=== PATIENT | female | born 1960 | race Hispanic/Latino ===

== ENCOUNTER 2016-12-02 09:02 | Outpatient (CLI) | payer OTHER ==
--- NOTE | 2016-12-02 12:11 | Mammography Report ---
BILATERAL DIGITAL SCREENING MAMMOGRAM with CAD: 12/02/16 09:02:00 CLINICAL: Routine screening. COMPARISON:11/27/15 and 11/21/14 FINDINGS: The breasts are heterogeneously dense, which may obscure small masses. A right retroareolar focal asymmetry requires additional imaging.No architectural distortion or suspicious calcifications.The left breast is negative. IMPRESSION: Right asymmetry requiring further workup. BI-RADS CATEGORY: 0 -- Additional Imaging Evaluation Required RECOMMENDATION: Recall for right lateralmedial , spot compression CC and MLO views and right breast ultrasound if needed. ACR BI-RADS MAMMOGRAPHIC CODES: 0 = Needs additional imaging evaluation; 1 = Negative; 2 = Benign; 3 = Probably benign; 4 = Suspicious; 5 = Malignant; 6 = Known biopsy-proven malignancy COMMENT: 1. Dense breast tissue, i.e., adenosis, fibrocystic changes, etc., may obscure an underlying neoplasm. 2. Approximately 10% of cancers are not detected with mammography. 3. A negative mammography report should not delay biopsy if a clinically suspicious mass is present. COMMENT: Patient follow-up letters are generated via our [employer] application.
== END 2016-12-02 09:03 | disposition home or self-care (01) ==
LOC: SPVWC 09:02
PROVIDERS: ATTEND Obstetrics & Gynecology
DX: Z12.31 Encounter for screening mammogram for malignant neoplasm of breast (principal)
CPT/HCPCS: 77067; G0202

== ENCOUNTER 2016-12-21 13:02 | Outpatient (CLI) | payer OTHER ==
--- NOTE | 2016-12-21 13:29 | Mammography Report ---
RIGHT DIGITAL DIAGNOSTIC MAMMOGRAM : 12/21/16 13:02:00 CLINICAL: Recall for asymmetries. COMPARISON:12/02/16 screening FINDINGS: Lateralmedial and spot compression MLO and CC views were performed. Satisfactory effacement of asymmetries on the spot views and negative lateral view. IMPRESSION: Negative Mammogram. BI-RADS CATEGORY: 1 -- Negative RECOMMENDATION: Routine mammographic screening in one year. ACR BI-RADS MAMMOGRAPHIC CODES: 0 = Needs additional imaging evaluation; 1 = Negative; 2 = Benign; 3 = Probably benign; 4 = Suspicious; 5 = Malignant; 6 = Known biopsy-proven malignancy COMMENT: 1. Dense breast tissue, i.e., adenosis, fibrocystic changes, etc., may obscure an underlying neoplasm. 2. Approximately 10% of cancers are not detected with mammography. 3. A negative mammography report should not delay biopsy if a clinically suspicious mass is present. COMMENT: Patient follow-up letters are generated via our [employer] application.
== END 2016-12-21 13:03 | disposition home or self-care (01) ==
LOC: SPVWC 13:02
PROVIDERS: ATTEND Obstetrics & Gynecology
DX: R92.8 Other abnormal and inconclusive findings on diagnostic imaging of breast (principal)
CPT/HCPCS: G0206-RT

== ENCOUNTER 2017-12-06 08:33 | Outpatient (CLI) | payer OTHER ==
--- NOTE | 2017-12-06 14:36 | Mammography Report ---
BILATERAL DIGITAL SCREENING MAMMOGRAM with CAD: 12/06/17 08:33:00 CLINICAL: Routine screening.History of a right benign biopsy. COMPARISON:12/02/16 FINDINGS: The breasts are heterogeneously dense, which may obscure small masses. No mass, architectural distortion or suspicious calcifications. IMPRESSION: No mammographic evidence of malignancy. BI-RADS CATEGORY: 1 - - Negative RECOMMENDATION: Routine mammographic screening in one year. COMMENT: Patient follow-up letters are generated by our [employer] application.
== END 2017-12-06 08:34 | disposition home or self-care (01) ==
LOC: SPVWC 08:33
PROVIDERS: ATTEND Obstetrics & Gynecology
DX: Z12.31 Encounter for screening mammogram for malignant neoplasm of breast (principal); E78.00 Pure hypercholesterolemia, unspecified; I10 Essential (primary) hypertension; K21.9 Gastro-esophageal reflux disease without esophagitis; Z87.891 Personal history of nicotine dependence; Z90.721 Acquired absence of ovaries, unilateral
CPT/HCPCS: 77067

== ENCOUNTER 2018-12-14 08:52 | Outpatient (CLI) | payer OTHER ==
--- NOTE | 2018-12-17 09:07 | Mammography Report ---
DIGITAL SCREENING MAMMOGRAM WITH CAD, 12/14/2018 INDICATION: Routine screening mammography. TECHNIQUE: Digital bilateral 2D mammography was obtained in the craniocaudal and mediolateral obliq ue projections. This examination was interpreted with the benefit of Computer-Aided Detection analysi s. COMPARISON: 12/06/2017 and 12/21/2016 FINDINGS: Breast Density: The breasts are heterogeneously dense, which may obscure small masses. There is no evidence of dominant mass, suspicious calcifications or architectural distortion in the r ight breast. However, left outer calcifications require additional imaging. No mass or architectural distortion of the left breast. IMPRESSION: Left calcifications requiring additional imaging. Recommend recall for left ML and CC mag nification views. Follow up recommendation: Special View: Mag Category 0: Incomplete. Needs additional imaging evaluation and/or prior mammograms for comparison. A "normal" or negative report should not discourage follow up or biopsy of a clinically significant f inding. A written summary of these findings will be mailed to the patient. The patient will be entered into a mammography reporting system which will generate a reminder letter for the patient's next appointmen t at the appropriate interval. The [employer] recommends yearly mammograms starting at age 40 and continuing as l nancy as a woman is in good health. Breast MRI is recommended for women with an approximate 20-25% or greater lifetime risk of breast cancer, including women with a strong family history of breast or ova ginny cancer or who have been treated for Hodgkin's disease. Signer Name: Chiki Calderon MD Signed: 12/17/2018 9:03 AM Workstation Name: [id number]
== END 2018-12-14 08:53 | disposition home or self-care (01) ==
LOC: SPVWC 08:52
PROVIDERS: ATTEND Obstetrics & Gynecology
DX: Z12.31 Encounter for screening mammogram for malignant neoplasm of breast (principal)
CPT/HCPCS: 77067

== ENCOUNTER 2019-01-16 08:12 | Outpatient (CLI) | payer OTHER ==
--- NOTE | 2019-01-16 09:22 | Mammography Report ---
DIGITAL LEFT DIAGNOSTIC MAMMOGRAM WITH CAD, WITHOUT TOMOSYNTHESIS 01/16/2019 INDICATION: ABNORMAL MAMMOGRAM. Recall for calcifications. TECHNIQUE: Digital left mammographic imaging was performed. Magnification views were obtained. This examination was interpreted with the benefit of Computer-aided Detection analysis. COMPARISON: 12/14/2018 Breast Density: The breasts are heterogeneously dense, which may obscure small masses. FINDINGS: Lateral medial and lateral and CC magnification views demonstrate several groups of suspici ous outer calcifications. Fine linear and pleomorphic calcifications with 2 groups added just below t he nipple level and 2 groups above the nipple level on the lateral view. No associated mass or jas ectural distortion. IMPRESSION: Suspicious left outer breast calcifications. Recommend stereotactic biopsy of at least 2 groups. I discussed the findings and the recommendation for a 2 site stereotactic biopsy with the patient at the time of the exam. Follow up recommendation: Stereotactic biopsy left breast. BI-RADS Category 4: Suspicious for Malignancy. A "normal" or negative report should not discourage follow up or biopsy of a clinically significant f inding. A written summary of these findings will be mailed to the patient. The patient will be entered into a mammography reporting system which will generate a reminder letter for the patient's next appointmen t at the appropriate interval. According to the [employer], yearly mammograms are recommended starting at age 40 and continuing as long as a woman is in good health. Breast MRI is recommended for women with an felicita roximately 20-25% or greater lifetime risk of breast cancer, including women with a strong family his tory of breast or ovarian cancer and women who have been treated for Hodgkin's disease. Signer Name: Chiki Calderon MD Signed: 01/16/2019 9:17 AM Workstation Name: [id number]
== END 2019-01-16 08:13 | disposition home or self-care (01) ==
LOC: SPVWC 08:12
PROVIDERS: ATTEND Obstetrics & Gynecology
DX: R92.8 Other abnormal and inconclusive findings on diagnostic imaging of breast (principal); R92.2 Inconclusive mammogram; Z90.721 Acquired absence of ovaries, unilateral; Z87.891 Personal history of nicotine dependence; Z98.890 Other specified postprocedural states

== ENCOUNTER 2019-01-31 12:39 | Outpatient (CLI) | payer OTHER ==
--- NOTE | 2019-01-31 15:51 | Mammography Report ---
STEREOTACTIC NEEDLE BIOPSY WITH CLIP PLACEMENT AT 2 SITES RIGHT BREAST INDICATION: Suspicious calcifications. COMPARISON: 01/16/2019 mammogram. FINDINGS: The patient was placed prone on the stereotactic biopsy table. A timeout was called and the skin was cleansed with betadine. Using stereotactic guidance, sterile technique and 1% lidocaine for skin anesthesia and 2% lidocaine with epinephrine for deep anesthesia, 8-gauge Mammotome vacuum-assisted biopsy was performed from a l ateral approach. Samples were obtained around the clock face and assistance representative calcifications were i dentified on a specimen radiograph. A localizer clip was placed at the biopsy site and the probe was removed. Using stereotactic guidance, sterile technique and 1% lidocaine for skin anesthesia and 2% lidocaine with epinephrine for deep anesthesia, 8-gauge Mammotome vacuum-assisted biopsy was performed from a l ateral approach at a second site. Samples were obtained around the clock face and assistance representative calc ifications were identified on a specimen radiograph. A localizer clip was placed at the biopsy site a nd the probe was removed. Hemostasis was achieved with pressure to both sites. Sterile dressings and an Azam bandage wrap were a pplied. A post procedure mammogram demonstrated removal of at least some of the calcifications both sites and concordant location of the biopsy clips. The patient tolerated the procedure well and there were no apparent complications. She left the department in good condition with a cold pack applied to the bio psy sites. She was given instructions for wound care and follow-up. IMPRESSION: Successful and uncomplicated stereotactic breast biopsy at 2 sites right breast. Signer Name: Chiki Calderon MD Signed: 01/31/2019 3:46 PM Workstation Name: [id number]
--- NOTE | 2019-01-31 16:14 | Mammography Report ---
STEREOTACTIC NEEDLE BIOPSY WITH CLIP PLACEMENT AT 2 SITES RIGHT BREAST INDICATION: Suspicious calcifications. COMPARISON: 01/16/2019 mammogram. FINDINGS: The patient was placed prone on the stereotactic biopsy table. A timeout was called and th e skin was cleansed with betadine. Using stereotactic guidance, sterile technique and 1% lidocaine for skin anesthesia and 2% lidocaine with epinephrine for deep anesthesia, 8-gauge Mammotome vacuum-assisted biopsy was performed from a l ateral approach. Samples were obtained around the clock face and sales representative girls' apparel calcifications were i dentified on a specimen radiograph. A localizer clip was placed at the biopsy site and the probe was removed. Using stereotactic guidance, sterile technique and 1% lidocaine for skin anesthesia and 2% lidocaine with epinephrine for deep anesthesia, 8-gauge Mammotome vacuum-assisted biopsy was performed from a l ateral approach at a second site. Samples were obtained around the clock face and sales representative girls' apparel calc ifications were identified on a specimen radiograph. A localizer clip was placed at the biopsy site a nd the probe was removed. Hemostasis was achieved with pressure to both sites. Sterile dressings and an Azam bandage wrap were a pplied. A post procedure mammogram demonstrated removal of at least some of the calcifications both sites and concordant location of the biopsy clips. The patient tolerated the procedure well and there were no apparent complications. She left the department in good condition with a cold pack applied to the bio psy sites. She was given instructions for wound care and follow-up. IMPRESSION: Successful and uncomplicated stereotactic breast biopsy at 2 sites right breast. Signer Name: Chiki Calderon MD Signed: 01/31/2019 4:10 PM Workstation Name: [id number]
--- NOTE | 2019-02-12 09:04 | Mammography Report ---
Pathology: A. 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 Breast tissue, left calcifications #2, core biopsies: * Ductal carcinoma in situ with associated microcalcifications * Growth pattern: solid, cribriform and comedonecrosis * Nuclear features: high grade * Necrosis: present * Carcinoma in situ measures 12 mm in greatest dimension. Immunohistochemical stains p63 (positive) and [facility] (positive) performed on blocks B1-B2 and confirm t he above diagnosis * Immunohistochemical stains for estrogen and progesterone receptors performed on block B1 and the result as follows: ER 0%, negative NM 0%, negative IMPRESSION: Concordant imaging and pathology. Signed: Chiki Calderon MD Signed:02/05/2019 9 STEREOTACTIC NEEDLE BIOPSY WITH CLIP PLACEMENT AT 2 SITES RIGHT BREAST INDICATION: Suspicious calcifications. COMPARISON: 01/16/2019 mammogram. FINDINGS: The patient was placed prone on the stereotactic biopsy table. A timeout was called and the skin was cleansed with betadine. Using stereotactic guidance, sterile technique and 1% lidocaine for skin anesthesia and 2% lidocaine with epinephrine for deep anesthesia, 8-gauge Mammotome vacuum-assisted biopsy was performed from a l ateral approach. Samples were obtained around the clock face and applications sales representative calcifications were i dentified on a specimen radiograph. A localizer clip was placed at the biopsy site and the probe was removed. Using stereotactic guidance, sterile technique and 1% lidocaine for skin anesthesia and 2% lidocaine with epinephrine for deep anesthesia, 8-gauge Mammotome vacuum-assisted biopsy was performed from a l ateral approach at a second site. Samples were obtained around the clock face and applications sales representative calc ifications were identified on a specimen radiograph. A localizer clip was placed at the biopsy site a nd the probe was removed. Hemostasis was achieved with pressure to both sites. Sterile dressings and an Azam bandage wrap were a pplied. A post procedure mammogram demonstrated removal of at least some of the calcifications at both sites and concordant location of the biopsy clips. The patient tolerated the procedure well and there were no apparent complications. She left the department in good condition with a cold pack applied to the biopsy sites. She was given instructions for wound care and follow-up. IMPRESSION: Successful and uncomplicated stereotactic breast biopsy at 2 sites right breast. Signer Name: Chiki Calderon MD Signed: 02/12/2019 8:59 AM Workstation Name: [id number]
== END 2019-01-31 12:40 | disposition home or self-care (01) ==
LOC: SPVWC 12:39
PROVIDERS: ATTEND Obstetrics & Gynecology
DX: R92.2 Inconclusive mammogram (principal); R92.8 Other abnormal and inconclusive findings on diagnostic imaging of breast; E78.00 Pure hypercholesterolemia, unspecified; I10 Essential (primary) hypertension; K21.9 Gastro-esophageal reflux disease without esophagitis; Z87.891 Personal history of nicotine dependence; Z79.899 Other long term (current) drug therapy; Z79.82 Long term (current) use of aspirin; Z85.43 Personal history of malignant neoplasm of ovary; Z86.711 Personal history of pulmonary embolism; Z90.721 Acquired absence of ovaries, unilateral; Z72.89 Other problems related to lifestyle; Z83.3 Family history of diabetes mellitus
CPT/HCPCS: 19081; 19082; 77065; 88305; A4648; 88341; 88342

== ENCOUNTER 2019-02-27 09:24 | Outpatient (CLI) | payer OTHER ==
--- NOTE | 2019-02-27 15:15 | Magnetic Resonance Report ---
BILATERAL BREAST MR WITHOUT AND WITH GADOLINIUM INDICATION: Newly diagnosed left breast cancer at 2 sites. She had a 2 site left stereotactic breast biopsy on 01/31/2019. 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 COMPARISONS: 01/31/2019 post procedure mammogram and 12/14/2018 bilateral screening mammogram. She also had a left breast ultrasound on the same day as this MRI. TECHNIQUE: Axial 1.0 mm T1 without, axial high-resolution 2.0 mm T2 and axial 1.0 mm dynamic vibrant high-resolution postcontrast T1 fat saturation sequences on a 1.5 Beverly magnet. The examination was p erformed with an 8-channel dedicated [place] breast coil. Post-processing with CAD and subtraction was performed on an [employer]@ workstation. 12.0 cc of MultiHance was injected without incident for the c ontrast portion of the exam. Consent was obtained prior to the administration of the contrast. FINDINGS: RIGHT BREAST: Minimal background parenchymal enhancement. No mass or suspicious enhancement. No suspi cious lymph nodes. LEFT BREAST: Minimal background parenchymal enhancement. Highly suspicious segmental clumped nonmass enhancement of the outer breast measures 10.0 cm anterior-posterior x 4.5 cm transverse x 4.5 cm supe rior-inferior. It spans from within 1 cm from the nipple to within 1 cm from the pectoralis major mus rigo. The stereotactic biopsy sites are at the posterior and inferior margins of this nonmass enhancem ent. No distinct mass. A suspicious 1 cm level 1 axillary lymph node has minimal central fat. No othe r suspicious lymph nodes. IMPRESSION: 1. Multicentric left breast cancer with tumor spanning 10 cm in the outer quadrant from within 1 cm o f the nipple to within 1 cm of the pectoralis major muscle. No chest wall invasion. 2. 1 suspicious left axillary lymph node. 3. Negative right breast and no suspicious right lymph nodes. BI-RADS Category 6: Known cancer Signer Name: Chiki Calderon MD Signed: 02/27/2019 3:11 PM Workstation Name: [id number]
--- NOTE | 2019-02-27 16:19 | Ultrasound Report ---
COMPLETE LEFT BREAST ULTRASOUND HISTORY: Newly diagnosed left breast cancer (high-grade DCIS) at 2 sites by stereotactic biopsy. COMPARISON: 12/14/2018 and 01/16/2019 mammograms FINDINGS: Ultrasound of all 4 quadrants and the retroareolar area were performed. A heterogeneous alessio id mass at 1:30 o'clock 6 cm from the nipple is consistent with a post biopsy hematoma and clip. It m easures 12 x 7 x 12 mm. A post biopsy hematoma/seroma extending to the skin at 3:00 5 cm from the nip ple correlates with the second stereotactic biopsy site. No other mass versus finding. Ultrasound of the left axilla demonstrated a single 1.2 cm lymph node with central fat and no suspicious lymph node s. IMPRESSION: Postbiopsy changes at 2 sites and no other suspicious findings in the left breast. BIRADS 6: Known biopsy proven malignancy. Signer Name: Chiki Calderon MD Signed: 02/27/2019 4:15 PM Workstation Name: [id number]
== END 2019-02-27 09:25 | disposition home or self-care (01) ==
LOC: SPVWC 09:24
PROVIDERS: ATTEND Surgery
DX: D05.12 Intraductal carcinoma in situ of left breast (principal)
CPT/HCPCS: 76641; A9577; C8908; 77049

== ENCOUNTER 2019-03-07 14:49 | Outpatient (CLI) | payer OTHER ==
--- NOTE | 2019-03-07 16:28 | Ultrasound Report ---
ULTRASOUND-GUIDED NEEDLE CORE BIOPSY LEFT AXILLARY LYMPH NODE WITH CLIP PLACEMENT CLINICAL: Left breast cancer and a suspicious left axillary lymph node by MRI. FINDINGS: The procedure was explained to the patient and informed consent was obtained. Ultrasound demonstrated a 1 cm lymph node which appears to correlate with the MRI finding.. I marked the breast with a felt tip marker and a timeout was called. The skin was prepped with Chloro -Prep and anesthetized with 1% lidocaine. Needle core biopsy was performed through small dermatotomy using ultrasound guidance, 2% lidocaine wi th epinephrine for deep anesthesia and a 18-gauge Achieve biopsy device. 2 cores were obtained and pl aced in formalin. A clip was deployed within the lymph node. The patient tolerated the procedure well and there were no apparent complications. Hemostasis was ach ieved with minimal effort and a sterile dressing was applied. IMPRESSION: Uncomplicated ultrasound guided needle core biopsy with clip placement left axilla. Signer Name: Chiki Calderon MD Signed: 03/07/2019 4:24 PM Workstation Name: [id number]
== END 2019-03-07 14:50 | disposition home or self-care (01) ==
LOC: SPVWC 14:49
PROVIDERS: ATTEND Surgery
DX: I89.8 Other specified noninfective disorders of lymphatic vessels and lymph nodes (principal); C50.912 Malignant neoplasm of unspecified site of left female breast; E78.00 Pure hypercholesterolemia, unspecified; I10 Essential (primary) hypertension; K21.9 Gastro-esophageal reflux disease without esophagitis; Z79.84 Long term (current) use of oral hypoglycemic drugs; Z79.899 Other long term (current) drug therapy; Z87.891 Personal history of nicotine dependence; Z85.43 Personal history of malignant neoplasm of ovary; Z86.711 Personal history of pulmonary embolism; Z90.721 Acquired absence of ovaries, unilateral; Z72.89 Other problems related to lifestyle; Z83.3 Family history of diabetes mellitus
CPT/HCPCS: 38505; 76942; 88305; A4648; 88342

== ENCOUNTER 2019-03-11 06:04 | Observation (INO) | payer OTHER ==
[~2019-03-11 06:04] MED LIST: ceFAZolin/Water 2 GM/20 ML 2 GM/20 ML SYRINGE IV NR
[2019-03-11] MEDS ORDERED: LACTATED RINGERS 1,000 ML ONE ×2 (07:02→09:47)
[2019-03-11] MEDS ORDERED: BACTERIOSTATIC SODIUM CHLORIDE 0.9% 30 ML VIAL INFILTRATI ONE (07:03)
--- NOTE | 2019-03-11 07:17 | Anesthesia Consultation ---
Anesthesia Consult and Med Hx Date of service: 03/11/19 - Airway Anesthetic Teeth Evaluation: Good ROM Head & Neck: Adequate Mental/Hyoid Distance: Adequate Mallampati Class: Class II Intubation Access Assessment: Good - Pulmonary Exam CTA: Yes - Cardiac Exam Cardiac Exam: RRR - Pre-Operative Health Status ASA Pre-Surgery Classification: ASA3 Proposed Anesthetic Plan: General Nerve Block: PEC Block - Pulmonary Hx Smoking: Yes (SINCE AGE 20; QUIT 2002) Hx Asthma: No SOB: No COPD: No Hx Pneumonia: No Hx Sleep Apnea: No - Cardiovascular System Hx Hypertension: Yes (15+ YEARS) - Central Nervous System Hx Seizures: No Hx Psychiatric Problems: Yes - Gastrointestinal Hx Gastroesophageal Reflux Disease: Yes (CONTROLLED WITH MEDS) - Endocrine Hx Renal Disease: No Hx End Stage Renal Disease: No Hx Hypothyroidism: Yes - Hematic Hx Anemia: No - Other Systems Hx Alcohol Use: Yes (OCCASIONAL) Hx Substance Use: No Hx Cancer: Yes Hx Obesity: No
--- NOTE | 2019-03-11 07:18 | Anesthesia Day of Surgery ---
Anesthesia Day of Surgery - Day of Surgery Patient Examined: Yes Patient H&P Reviewed: Yes Patient is NPO: Yes
[2019-03-11] MEDS ORDERED: PROPOFOL 200 MG/20 ML VIAL IV ONE (07:30)
[2019-03-11] MEDS ORDERED: LIDOCAINE MPF (2%) 20 MG/1 ML VIAL 5 ML ONE (07:33)
[2019-03-11] MEDS ORDERED: BUPIVACAINE-EPINEPHRINE/PF 0.5%-1:200,000 (30 ML) VIAL INFILTRATI ONE (07:35)
[2019-03-11] MEDS ORDERED: ROCURONIUM 50 MG/5 ML INJ IV ONE (07:35)
[2019-03-11] MEDS ORDERED: BACITRACIN 50,000 UNIT VIAL ONE (07:37)
[2019-03-11] MEDS ORDERED: ceFAZolin 1 GM VIAL ONE (07:37)
[2019-03-11] MEDS ORDERED: METHYLENE BLUE 50 MG/10 ML AMP ONE (07:37)
[2019-03-11] MEDS ORDERED: GENTAMICIN 40 MG/ML VIAL 2 ML ONE (07:37)
[2019-03-11] MEDS ORDERED: SODIUM CHLORIDE P/F VIAL 10 ML 20 ML ONE (07:38)
[2019-03-11] MEDS ORDERED: MIDAZOLAM 2 MG/2 ML INJ IV NR (08:00)
[2019-03-11] MEDS ORDERED: GABAPENTIN 500 MG/10 ML ORAL LIQD PO NR (08:00)
[2019-03-11] MEDS ORDERED: LACTATED RINGERS 1,000 ML IV SCH (08:00)
[2019-03-11] MEDS ORDERED: ONDANSETRON 4 MG/2 ML INJ IV PRN (08:00)
[2019-03-11] MEDS ORDERED: HYDROmorphone 1 MG/1 ML INJ IV PRN (08:00)
[2019-03-11] MEDS ORDERED: MAGNESIUM OXIDE 400 MG TAB PO NR (08:00)
[2019-03-11] MEDS ORDERED: GABAPENTIN 300 MG CAP PO NR (08:00)
[2019-03-11] MEDS ORDERED: fentaNYL 100 MCG/2 ML INJ IV NR (08:00)
[2019-03-11] MEDS ORDERED: ACETAMINOPHEN 500 MG TAB PO NR (08:00)
[2019-03-11] MEDS ORDERED: SODIUM CHLORIDE 0.9% 1000 ML 1,000 ML ONE (08:33)
[2019-03-11] MEDS ORDERED: dexAMETHasone 20 MG/5 ML VIAL ONE (08:36)
[2019-03-11] MEDS ORDERED: ONDANSETRON 4 MG/2 ML INJ ONE (08:36)
[2019-03-11] MEDS ORDERED: METHYLENE BLUE 50 MG/10 ML AMP IV ONE (09:19)
[2019-03-11] MEDS ORDERED: BACITRACIN 50,000 UNIT VIAL IR ONE (09:21)
[2019-03-11] MEDS ORDERED: ceFAZolin 1 GM VIAL IR ONE (09:21)
[2019-03-11] MEDS ORDERED: SODIUM CHLORIDE 0.9% 50 ML VIAL IRRIGATION ONE (09:22)
[2019-03-11] MEDS ORDERED: WATER FOR IRRIG STERILE 1,500 ML BOTTLE IR ONE (09:23)
[2019-03-11] MEDS ORDERED: SODIUM CHLORIDE 0.9% P/F 10 ML VIAL INFILTRATI ONE (09:32)
--- NOTE | 2019-03-11 10:37 | Post Operative Note ---
Pre-op diagnosis: left breast cancer Post-op diagnosis: same Findings: left breast cancer, s/p mastectomy Procedure: left breast reconstruction with senior naval parachutist and mesh Anesthesia: CHRISTAL Surgeon: KWAKU FRANK Estimated blood loss: minimal Pathology: none Condition: stable Disposition: PACU
--- NOTE | 2019-03-11 10:41 | Short Stay Summary ---
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 - History H&P: obtained from office - Allergies and Medications Current Medications: Allergies No Known Allergies Allergy (Verified 03/07/19 08:57) Home Medications Medication Instructions Recorded Confirmed Last Taken Type Milk Thistle 1 cap PO DAILY 01/29/13 03/07/19 02/10/13 History Mv-Mins/Folic Acid/Guarana/Caf 1 tab PO QDAY 01/29/13 03/11/19 03/10/19 11:00 History [One Daily Tablet] hydroCHLOROthiazide [HCTZ] 1 tab PO QDAY 01/29/13 03/11/19 03/11/19 04:30 History ALPRAZolam [Xanax TAB] 0.5 mg PO BID PRN 03/07/19 03/11/19 03/10/19 20:30 History AtorvaSTATin [Lipitor] 20 mg PO QHS 03/07/19 03/11/19 03/10/19 11:00 History Levothyroxine [Synthroid] 100 mcg PO QAM 03/07/19 03/11/19 03/11/19 04:30 History allopurinoL [Zyloprim] 300 mg PO QDAY 03/07/19 03/11/19 03/10/19 11:00 History metFORMIN [Glucophage] 500 mg PO BID 03/07/19 03/11/19 03/10/19 20:30 History Active Medications Acetaminophen (Tylenol) 1,000 mg PO ONCE NR Stop: 03/11/19 15:00 Fentanyl (Sublimaze) 100 mcg IV ONCE NR Stop: 03/11/19 15:00 Last Admin: 03/11/19 07:45 Dose: 100 mcg Documented by: Gabapentin (Gabapentin) 300 mg PO PREOP NR Stop: 03/11/19 15:00 Last Admin: 03/11/19 07:30 Dose: 300 mg Documented by: Hydromorphone HCl (Dilaudid) 0.5 mg IV Q10MIN PRN PRN Reason: Pain , Severe (7-10) Stop: 03/11/19 15:00 Cefazolin Sodium (Ancef/Sterile Water 2 Gm/20 Ml) 2 gm in 20 mls @ 80 mls/hr IV PREOP NR; Protocol Stop: 12/30/19 18:00 Lactated Ringer's (Lactated Ringers) 1,000 mls @ 100 mls/hr IV DIRECT DIXIE Last Admin: 03/11/19 07:20 Dose: 100 mls/hr Documented by: Magnesium Oxide (Mag-Ox) 400 mg PO ONCE NR Stop: 03/11/19 15:00 Last Admin: 03/11/19 07:30 Dose: 400 mg Documented by: Midazolam HCl (Versed) 2 mg IV PREOP NR Stop: 03/11/19 23:59 Last Admin: 03/11/19 07:44 Dose: 2 mg Documented by: Ondansetron HCl (Zofran) 4 mg IV ONCE PRN PRN Reason: Nausea And Vomiting Stop: 03/11/19 16:00 - Hospital course Hospital course: discharge from PACU - Disposition Condition at discharge: Good Disposition: DC-01 TO HOME OR SELFCARE Short Stay Discharge Plan Activity: other (no lifting more than 5 lbs, no driving, no exercise) Weight Bearing Status: Full Weight Bearing Diet: regular Wound: other (LEACE LINDY for 1 week, do not remove or get wet. Sponge bath only. Drain teaching) Follow up with: LAMONT RIZVI DO [Primary Care Provider] - 7 Days KWAKU FRANK MD [Staff Physician] - 7 Days
[2019-03-11] MEDS ORDERED: GLYCOPYRROLATE 0.4 MG/2 ML INJ ONE (11:41)
[2019-03-11] MEDS ORDERED: NEOSTIGMINE 10MG/10 ML INJ MDV ONE (11:42)
--- NOTE | 2019-03-11 12:19 | Operative Report ---
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 Manager Business Information: Mark Rosario Anesthesia: General Findings: Left breast clips present within left total mastectomy. 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 After discussion of the multicentricity of her DCIS and small breasts, patient wished to proceed with total mastectomy with sentinel lymph node biopsy, possible axillary lymph node dissection, with immediate reconstruction by plastic surgery. She understands the role of possible adjuvant chemotherapy and radiation therapy post mastectomy. She has met with medical oncology as well. She wished to proceed with the above procedure. Procedure in detail: Anesthesia placed left pectoral muscle block prior to going to the operating room. The patient was taken to the operating room and was placed supine on the operating table. General anesthesia was administered. The left nipple was injected with radioisotope and 1 cc of methylene blue. Bilateral breast and axilla were prepped and draped in the normal sterile operative fashion. Timeout was performed.Typical mastectomy illiptical incision marking was made with incision encompassing known areas of cancer and biopsy tracts. Attention was taken towards the left breast first. Gamma probe scanned the axilla with area of hotspot identified. A skin incision was made with a 10 blade knife and dissection taken down to the subcutaneous tissues. First began raising of the superior flap to the level of the clavicle superiorly and posteriorly to the pectoralis muscle. Followed by raising of the medial flap to the level of the sternum and posteriorly to the pectoralis muscle. Followed by raising of the lateral flap to the level of the latissimus dorsi muscle and taken down posteriorly. The axillary fascia in the axilla was opened and the gamma probed was inserted into the axilla, 2 sentinel lymph nodes were identified with the gamma probe and nodes noted for blue dye. SLNs were dissected free and sent to pathology. All remaining counts were less than 10% of highest count. Lymph nodes were sent to pathology with findings negative for malignancy noted on frozen section. Then proceeded with raising of the inferior flap to the level of the inframammary fold taken posterior to the pectoralis muscle. The mastectomy/left breast was removed from the pectoralis muscle without incident. The specimen was appropriately marked and sent to radiology with clips present and then sent to pathology.The chest wall was irrigated and suctioned. Hemostasis was obtained. One 19 [place] PHILLIP drain was placed. At this point the procedure was turned over to Plastic Surgery for immediate reconstruction. She continues to tolerate surgery very well.
[2019-03-11] MEDS ORDERED: SODIUM CHLORIDE 0.9% IRR 1,000 ML BOTTLE IR ONE (12:22)
--- NOTE | 2019-03-11 12:50 | Operative Report ---
PREOPERATIVE DIAGNOSIS: Left breast cancer. POSTOPERATIVE DIAGNOSIS: Left breast cancer. PROCEDURES: 1. Left breast reconstruction using tissue dumbwaiter operator. 2. Left breast reconstruction using biological mesh. 3. Application of LINDY negative pressure wound VAC device on the left breast for postoperative wound healing. SURGEON: Dr. Chance Brumfield. SOFTWARE IMPLEMENTATION PROJECT MANAGER: None. ANESTHESIA: General. OPERATIVE INDICATIONS: This is a 58-year-old female who was referred to me by Dr. Valverde for treatment of left-sided breast cancer. She is planning on undergoing left-sided mastectomy and desired options for reconstruction. Based on our discussion and her history and physical exam, we decided on a left-sided tissue dumbwaiter operator reconstruction due to the fact that nipple-sparing was not an option for her due to location of the tumor with a plan for delayed dumbwaiter operator to implant exchange. The patient did not want to proceed with any right-sided mastectomy or surgery and at this time, it would have delayed reconstruction in the future once the left side was completed. OPERATIVE DETAILS: With informed consent obtained, the patient was brought to the operating room and placed supine on the operating room table. Preoperative antibiotics and general anesthesia were administered. The patient was prepped and draped in the usual sterile fashion. A timeout was called to verify name of the patient and the operation being performed and the side and site of the operation. Dr. Valverde began the operation and her portion will be dictated separately. I came into the room when she had completed the left-sided mastectomy and sentinel lymph nodes. There was a mastectomy defect and she had taken an elliptical piece of skin with the nipple areola complex and there was a residual mastectomy defect. The skin flaps were on the thin side, but the skin appeared to be viable at the time. I went ahead and therefore proceeded with plan for prepectoral tissue dumbwaiter operator reconstruction. On the back table, we prepared the composite implant. I used a [place] [employer] high profile tissue dumbwaiter operator 375 mL with serial #[id number] and then we used a piece of FlexHD 16 x 20 cm perforated pliable with serial #[id number]. We did a complete wrap of the tissue dumbwaiter operator with the FlexHD securing it with PDS sutures on the backside. We trimmed it appropriately as needed, but there was no redundant tissue. We evacuated the air from the dumbwaiter operator filled with 150 mL of saline tinted with methylene blue. We soaked the composite in triple antibiotic and irrigated it with Betadine as well. We then placed that into the prepectoral space of the left chest and secured it to the chest wall with 2-0 PDS interrupted sutures circumferentially. We then placed a 15 and 19-[place] round Umair drain, achieved hemostasis, irrigated the pocket copiously and then closed using 2-0 Vicryl interrupted to close the deeper layers, 3-0 Monocryl deep dermal and then a 2-0 Monocryl V-Loc barbed suture in a subcuticular fashion. We then applied a LINDY negative pressure wound VAC device to the breast for postoperative wound healing. The drains were dressed with Biopatches and Tegaderm. The patient tolerated the procedure well, was awakened from general anesthesia, transferred to PACU in stable condition. ESTIMATED BLOOD LOSS: Minimal. COMPLICATIONS: None. SPECIMENS: None. JOB# [id number] MARISOL/SOCORRO
--- NOTE | 2019-03-11 13:14 | Post Anesthesia Evaluation ---
- Post Anesthesia Evaluation Patient Participated: Yes Airway Patent: Yes Stable Respiratory Function: Yes Nausea/Vomiting: No Temp > 96.8F: Yes Pain Manageable: Yes Adequeate Hydration: Yes Anesthesia Complications: No Block Receding Appropriately: Yes Patient on Ventilator: No
[2019-03-11] MEDS ORDERED: oxyCODONE /ACETAMINOPHEN 5-325MG TAB PO PRN (13:40)
[2019-03-11] MEDS ORDERED: oxyCODONE /ACETAMINOPHEN 5-325MG TAB ONE (13:42)
[2019-03-11 15:30] VITALS: BP 132/82
--- NOTE | 2019-03-12 09:20 | Mammography Report ---
SPECIMEN RADIOGRAPH LEFT BREAST INDICATION: Multicentric left breast cancer. COMPARISON: 01/31/2019 FINDINGS: A single biopsy clip is identified within the specimen and it is approximately 9 cm from the nipple. This clip correlates with the second stereotactic biopsy sample from 01/31/2019. IMPRESSION: Excision of the known cancer. Signer Name: Chiki Calderon MD Signed: 03/12/2019 9:16 AM Workstation Name: [id number]
== END 2019-03-11 10:38 | disposition home or self-care (01) ==
LOC: 3A 06:04 → INTOOBSV 06:04 → EDSTATUS 08:00
PROVIDERS: ADMIT Surgery; ATTEND Surgery
DX: C50.412 Malignant neoplasm of upper-outer quadrant of left female breast (principal); C50.512 Malignant neoplasm of lower-outer quadrant of left female breast; Z80.3 Family history of malignant neoplasm of breast; Z80.42 Family history of malignant neoplasm of prostate; Z85.43 Personal history of malignant neoplasm of ovary
CPT/HCPCS: 19303; 38525; 38792; 76098; 78800; 82962; 88307; 88309; 88331; 88341; 88342; 96374; A9541; C1789; G0378; G0379; J0690; J1100; J1170; J1580; J2250; J2405; J2704; J2710; J3010; J7030; J7120; Q4128; Q9968; 88333